=== PATIENT | female | born 1995 | race Two or more races ===

== ENCOUNTER 2021-01-14 06:19 | Inpatient (IN) ==
[2021-01-14] MEDS ORDERED: MEPERIDINE 50 MG/1 ML VIAL IV PRN (07:45)
[2021-01-14] MEDS ORDERED: LACTATED RINGERS 500 ML IV PRN (07:45)
[2021-01-14] MEDS ORDERED: ONDANSETRON 4 MG/2 ML VIAL IV PRN (07:45)
[2021-01-14] MEDS ORDERED: BUTORPHANOL 2 MG/ML VIAL IV PRN (07:45)
[2021-01-14] MEDS: LACTATED RINGERS 1,000 ML IV SCH (07:50)
[2021-01-14 08:00] LABS: Basophils % 0.3 % (0.0-0.8); Eosinophils % 0.3 % (0.00-10.9); Hematocrit 40.3 VOL% (35.7-47.0); Hemoglobin 13.2 GM/DL (12.0-16.0); Immature Granulocytes Absolute 0.07 #; Lymphocytes # 1.5 10*3/uL (1.4-4.0); Lymphocytes % 20.8 % (21.3-54.2); Mean Corpuscular HGB Conc 32.8 GM/DL (32-36); Mean Corpuscular Volume 98.3 FL (87-102); Mean Platelet Volume 11.7 FL (9.6-12.0); Monocytes % 8.1 % (1.7-12.7); Neutrophils % 69.5 % (38.7-73.9); Platelet Count 186 T/CUMM (130-400); White Blood Count 7.3 T/CUMM (4-12)
[2021-01-14] MEDS: OXYTOCIN/LR 20 UNIT/1,000 ML BAG IV SCH (08:12)
[2021-01-14 08:20] LABS: Albumin 2.8 G/DL (3.4-5.0); Bilirubin,Total 0.8 MG/DL (0.2-1.0); Calcium 8.4 MG/DL (8.5-10.1); Osmolality,Calculated 275.4 MOS/KG (273-304); Potassium 3.7 MMOL/L (3.5-5.1); Total Protein 7.1 G/DL (6.4-8.2)
[2021-01-15] MEDS: LACTATED RINGERS 1,000 ML IV SCH (06:14)
[2021-01-15] MEDS ORDERED: NALOXONE 0.4 MG/ML VIAL IV PRN (09:23)
[2021-01-15] MEDS ORDERED: FAMOTIDINE 20 MG/2 ML VIAL IV ONE (09:23)
[2021-01-15] MEDS ORDERED: LACTATED RINGERS 250 ML IV PRN (09:23)
[2021-01-15] MEDS ORDERED: hydrOXYzine HCL 25 MG/1 ML VIAL IM PRN (09:23)
[2021-01-15] MEDS ORDERED: CITRIC ACID/SODIUM CITRATE 30 ML UDCUP PO ONE (09:23)
[2021-01-15] MEDS ORDERED: ePHEDrine 50 MG/ML VIAL IV PRN (09:23)
[2021-01-15] MEDS ORDERED: diphenhydrAMINE 50 MG/1 ML VIAL IV PRN ×2 (09:23)
[2021-01-15] MEDS ORDERED: LACTATED RINGERS 1,000 ML IV ONE (09:23)
[2021-01-15] MEDS ORDERED: PROMETHAZINE 25 MG/1 ML VIAL IM ONE (09:23)
[2021-01-15] MEDS ORDERED: fentaNYL 2 MCG/ROPIV 0.2% EPID 100 ML EPIDURAL SCH (09:30)
[2021-01-15] MEDS ORDERED: METHYLERGONOVINE 0.2 MG/1 ML AMP ONE (10:54)
[2021-01-15] MEDS ORDERED: TRANEXAMIC ACID 1,000 MG/10 ML VIAL ONE (10:54)
[2021-01-15] MEDS ORDERED: miSOPROStoL 200 MCG TABLET ONE (10:54)
[2021-01-15] MEDS ORDERED: CARBOPROST TROMETHAMINE 250 MCG/ML AMP IM ONE (10:55)
[2021-01-15 14:04] LABS: Cord Arterial Blood HCO3 25.5 MMOL/L
[2021-01-15 14:07] LABS: Cord Venous Blood HCO3 23.7 MMOL/L; Cord Venous Blood PCO2 40.1 MMHG; Cord Venous Blood PO2 33.7 MMHG
[2021-01-15] MEDS: OXYTOCIN/LR 20 UNIT/1,000 ML BAG IV SCH (15:56)
[2021-01-15] MEDS ORDERED: WITCH HAZEL PADS 100/JAR TOP PRN (17:15)
[2021-01-15] MEDS ORDERED: HYDROCORTISONE 2.5% RECTAL CREAM 30 GM TUBE TOP PRN (17:15)
[2021-01-15] MEDS ORDERED: oxyCODONE/ACETAMINOPHEN 5-325 MG TABLET PO PRN ×2 (17:15)
[2021-01-15] MEDS ORDERED: DIPH/TET/ACEL PERT BOOSTER VACCINE 0.5 ML VIAL IM ONE (17:15)
[2021-01-15] MEDS ORDERED: ACETAMINOPHEN 325 MG TABLET PO PRN (17:15)
[2021-01-15] MEDS ORDERED: BISACODYL 10 MG SUPP RECTAL PRN (17:15)
[2021-01-15] MEDS ORDERED: BENZOCAINE 20%/MENTHOL 0.5% SPRAY 56 GM CAN TOP PRN (17:15)
[2021-01-15] MEDS ORDERED: LANOLIN 50% CREAM 0.3 OZ TUBE TOP PRN (17:15)
[2021-01-15] MEDS: DOCUSATE SODIUM 100 MG CAPSULE PO SCH (22:15)
[2021-01-15] MEDS: IBUPROFEN 800 MG TABLET PO PRN (22:15)
[2021-01-16 06:19] LABS: Basophils % 0.1 % (0.0-0.8); Eosinophils % 0.4 % (0.00-10.9); Hematocrit 35.1 VOL% (35.7-47.0); Immature Granulocytes % 0.6 %; Immature Granulocytes Absolute 0.05 #; Lymphocytes # 1.8 10*3/uL (1.4-4.0); Lymphocytes % 21.2 % (21.3-54.2); Mean Corpuscular HGB Conc 34.2 GM/DL (32-36); Mean Corpuscular Volume 95.6 FL (87-102); Mean Platelet Volume 11.5 FL (9.6-12.0); Monocytes % 6.4 % (1.7-12.7); Neutrophils % 71.3 % (38.7-73.9); Platelet Count 157 T/CUMM (130-400); Red Blood Count 3.67 MC/CUMM (3.8-5.5); Red Cell Distribution Width 13.2 % (9.3-17.3); White Blood Count 8.5 T/CUMM (4-12)
[2021-01-16] MEDS: DOCUSATE SODIUM 100 MG CAPSULE PO SCH ×2 (08:43→20:28)
[2021-01-16] MEDS ORDERED: MAGNESIUM HYDROXIDE SUSP 30 ML UDCUP PO PRN (20:24)
[2021-01-16] MEDS: IBUPROFEN 800 MG TABLET PO PRN (20:28)
[2021-01-17 07:22] VITALS: BP 113/74
[2021-01-17] MEDS: DOCUSATE SODIUM 100 MG CAPSULE PO SCH (08:59)
== END 2021-01-17 12:40 | disposition home or self-care (01) | DRG 807 ==
LOC: N.LD 06:19 → N.OB 01-15 15:40
PROVIDERS: ADMIT Obstetrics & Gynecology; ATTEND Obstetrics & Gynecology